=== PATIENT | male | born 1980 | race Caucasian/White ===

== ENCOUNTER 2017-04-25 13:13 | Emergency (ER) | payer OTHER ==
[~2017-04-25] VITALS: Ht 180.3 cm; Wt 81.6 kg
[2017-04-25 14:12] LABS: HEMATOCRIT 45.6 % (38.0-50.0); MCH 31.4 PG (29.0-34.0); MCHC 34.4 G/DL (30.0-36.0); MCV 91.2 FL (86-99); MEAN PLAT.VOLUME 9.2 uM^3 (9.0-12.4); PLATELET COUNT 366 K/uL (156-360); RBC DIS.WIDTH-CV 11.9 % (11.8-14.6); RBC DIS.WIDTH-SD 39.6 % (39-53); WHITE BLOOD COUNT 10.2 K/uL (4.1-10.2)
[2017-04-25 14:24] LABS: CHLORIDE 106 mEq/L (99-109); POTASSIUM 3.8 mEq/L (3.7-5.4); SODIUM 141 mEq/L (136-147)
[2017-04-25 14:26] LABS: ADD MIUA? NO; BILIRUBIN NEGATIVE; BLOOD NEGATIVE; COLOR YELLOW ((YELLOW)); GLUCOSE (STRIP) NEGATIVE; KETONES NEGATIVE; LEUKOCYTES NEGATIVE; NITRITE NEGATIVE; PROTEIN (STRIP) NEGATIVE; SPECIFIC GRAVITY 1.018 (1.000-1.030); UROBILINOGEN 0.2 MG/DL (0.2-1.0)
[2017-04-25 14:27] LABS: GLUCOSE 79 mg/dL (70-99)
[2017-04-25 14:28] LABS: ANION GAP 10 MEQ/L (2-14)
[2017-04-25 14:29] LABS: TOTAL BILIRUBIN 0.4 mg/dL (0.0-1.0)
[2017-04-25 14:30] LABS: ALKALINE PHOSPHATASE 72 IU/L (3-129)
[2017-04-25 14:31] LABS: UREA NITROGEN (BUN) 9 mg/dL (9-23)
[2017-04-25 14:43] LABS: GFR ESTIMATE (CALCULATED) > 59 mL/min/
[2017-04-25 14:49] LABS: UCUL ADDED? NO
[2017-04-25 15:13] LABS: LIPASE 23 U/L (1.0-51.0)
[2017-04-25 15:35] VITALS: BP 126/87
== END 2017-04-25 15:35 | disposition home or self-care (01) ==
LOC: EME 13:13
DX: R10.9 Unspecified abdominal pain (principal); K59.00 Constipation, unspecified; R19.7 Diarrhea, unspecified; F17.200 Nicotine dependence, unspecified, uncomplicated
CPT/HCPCS: 80053; 81003; 83690; 85027; 99281; 99283